=== PATIENT | male | born 1990 | race Caucasian/White ===

== ENCOUNTER 2018-05-29 22:37 | Inpatient (IN) | payer OTHER ==
[~2018-05-29] VITALS: Ht 188 cm; Wt 130.0 kg
[2018-05-29 23:40] VITALS: BP 146/97; PULSE 100; RESP 18
--- NOTE | 2018-05-30 00:05 | HP ---
Date/Time of Note Date/Time of Note DATE: 05/30/18 TIME: 00:05 Assessment/Plan VTE Prophylaxis SCD applied (from Nsg): Yes Pharmacological prophylaxis: NA/contraindicated Pharm contraindication: low risk/ambulating Lines/Catheters IV Catheter Type (from Nrsg): Saline Lock Assessment/Plan Hospital Course This is a 27-year male being admitted to the [facility] floor for: #1 acute pancreatitis: Possibly secondary to alcohol use versus triglycerides. Will check an ethanol level. Will check lipid panel. Keep the patient n.p.o. except meds. IV fluid hydration aggressively with normal saline. Pain control with Dilaudid. Check lipase level stat and in the a.m. trial of clear liquid diet in the a.m. #2 hyponatremia: Secondary likely to dehydration. IV hydration with normal saline. Monitor sodium levels. #3 diabetes mellitus type 2: hold patient's home oral medications, check hemoglobin A1c, insulin sliding scale, urine microalbumin #4 DVT GI prophylaxis: SCDs, no GI prophylaxis indicated Further treatment strategy will be implemented as per the clinical course HPI/ROS Admit Date/Time Admit Date/Time May 29, 2018 at 23:24 Hx of Present Illness Chief complaint: Abdominal pain This is a 27-year-old male with a history of diabetes and pancreatitis who presented to [facility] complaining of abdominal pain. The pain had started approximately 2 hours prior to his arrival at the ED. Pain was in the left upper abdomen and was sharp in nature and was constant. Denies any nausea vomiting or diarrhea. Did report a history of pancreatitis in the past. Patient reports that he last drank on Monday. He states he drinks approximately twice a week. Patient does report that he is hungry. Vitals at the transfer facility showed: Temperature 97.7/pulse 118/respirations 18/BP 141/85/pulse ox 96 on room air CBC showed white blood cell count 8.4/hemoglobin 16.8/hematocrit 49.8/platelet count 211 BMP shows sodium 132/potassium 4.6/chloride 93/carbon dioxide 24/creatinine 0.8 glucose 369 AST 27/ALT 43/alk phos 66/lipase 213 Urinalysis showed: Protein greater than 300 glucose greater than [address] scan of the abdomen and pelvis showed normal gallbladder. Fluid infiltration adjacent to the pancreatic tail and extending anterior to the left anterior perirenal fossa concerning for pancreatitis Allergies: NKDA Medications: See May Const: As per HPI Eyes : No pain discharge or redness or change in visual acuity ENT: No pain, sore throat, congestion, congestion, dysphagia or discharge Respiratory: No shortness of breath, cough, sputum, wheezing, or pleuritic pain Cardiovascular: No chest pain, palpitation, PND, or edema GI : As per HPI Genitourinary: No dysuria, hematuria, flank pain , discharge or CVA tenderness Musculoskeletal: No joint pain, back pain, neck pain, restricted range of motion in neck or joints Skin: No rash, bruising or hives Neuro: No headache, dizziness, syncope, seizure, focal weakness Endocrine: No polyuria, polydipsia, temperature intolerance Psych: No hallucination, depression, anxiety or suicidal ideation PMH/Family/Social Past Medical History Diabetes mellitus, recurrent pancreatitis Coded Allergies: No Known Allergy (Unverified , 05/30/18) Past Surgical History Pilonidal cyst removal Family History Significant Family History: no pertinent family hx Social History Alcohol Use: occasionally Smoking Status: Current every day smoker (Half pack per day) Drug Use: none Exam/Review of Systems Vital Signs Vitals Vital Signs Date Temp Pulse Resp B/P (MAP) Pulse Ox O2 O2 Flow FiO2 Time Delivery Rate 05/29/18 97.5 100 18 146/97 95 Room Air 23:40 (113) Exam Exam General: Patient currently lying in bed in mild distress from abdominal pain HEENT: Atraumatic, normocephalic. The pupils are equal, round and reactive. Extraocular motor are intact Neck: Supple with full range of motion. No rigidity or meningismus Chest: Nontender Lungs: Clear to auscultation bilaterally no crackles rales or wheezing Heart: Normal S1-S2, Regular rhythm and rate. No murmur, S3, or S4 Abdomen: Soft , tenderness palpation along the epigastric and left upper quadrant nondistended , bowel sounds are present. No guarding no rebound tenderness , No masses or organomegaly. No costovertebral temporal angle mass Extremities: Normal to inspection, no edema no cyanosis Neurologic: Normal mental status, speech normal, cranial nerves II through XII are intact, motor and sensory are intact, Additional Comments PROCEDURE: Chest. CLINICAL INDICATION: Wheezing. TECHNIQUE: Single frontal view of the chest was obtained. COMPARISON: None. FINDINGS: The cardiac silhouette is within normal limits. The aortic arch is unremarkable. There is no focal consolidation, vascular congestion or pleural effusion. There is no pneumothorax. IMPRESSION: No evidence for active cardiopulmonary disease. .Lj Yao MD, MD Date Time Electronically viewed and signed by .Lj Yao MD, on 05/30/2018 02:22 .T/ CC: ALEX LONG [id number] ALEX LONG May 30, 2018 00:05
[2018-05-30] MEDS ORDERED: BISACODYL (EC) 5 MG TAB PO PRN (00:30)
[2018-05-30] MEDS ORDERED: ACETAMINOPHEN 325 MG TAB PO PRN (00:30)
[2018-05-30] MEDS ORDERED: LORAZEPAM 2 MG INJ IV PRN (00:30)
[2018-05-30] MEDS ORDERED: ONDANSETRON 4 MG INJ IV PRN (00:30)
[2018-05-30] MEDS ORDERED: NACL 0.9% 3 ML SYG IV SCH (00:30)
[2018-05-30] MEDS ORDERED: DOCUSATE SODIUM 100 MG CAP PO PRN (00:30)
[2018-05-30] MEDS: SOD CHLORIDE 0.9% 1,000 ML IV SCH ×5 (00:47→23:36)
[2018-05-30] MEDS: HYDROmorphONE 0.5 MG/0.5 ML SYG IV PRN ×2 (00:53→07:45)
[2018-05-30] MEDS ORDERED: GLUCOSE GEL 15 GRAM TUBE PO PRN ×2 (01:00)
[2018-05-30] MEDS ORDERED: GLUCOSE GEL 15 GRAM TUBE BUCCAL PRN (01:00)
[2018-05-30] MEDS ORDERED: GLUCAGON 1 MG INJ IM PRN (01:00)
[2018-05-30] MEDS ORDERED: DEXTROSE 50% 50 ML SYRINGE IV PRN ×2 (01:00)
[2018-05-30] MEDS: INSULIN ASPART [NOVOLOG] 3 ML PEN SC SCH ×8 (02:00→21:00)
[2018-05-30 02:18] VITALS: Ht 188 cm; Wt 130.0 kg
[2018-05-30] MEDS ORDERED: LEVALBUTEROL (NEB) 1.25 MG/0.5 ML AMP HHN PRN (03:00)
[2018-05-30 08:07] VITALS: BP 129/60; PULSE 93; RESP 18
[2018-05-30] MEDS: THIAMINE 100 MG TAB PO SCH (09:13)
[2018-05-30] MEDS: MULTIVITAMINS THERAPEUTIC TAB PO SCH (09:13)
[2018-05-30] MEDS: FOLIC ACID 1 MG TAB PO SCH (09:14)
--- NOTE | 2018-05-30 10:29 | PN ---
Date/Time of Note Date/Time of Note DATE: 05/30/18 TIME: 10:28 Assessment/Plan VTE Prophylaxis Risk score (from Ns)>0 risk: 1 SCD applied (from Ns): No SCD contraindicated: other Pharmacological prophylaxis: NA/contraindicated Pharm contraindication: low risk/ambulating Lines/Catheters IV Catheter Type (from [facility]): Saline Lock Urinary Cath still in place: No Assessment/Plan Hospital Course SUBJECTIVE: Tolerating clear liquids. Denies any nausea. OBJECTIVE: Physical Exam General: Obese, 27 year-old male lying in bed in no apparent distress. HEENT: Normocephalic, atraumatic. Eyes: Anicteric sclerae, conjunctivae clear. ENT: Nasal septum midline, oral mucosa moist. Neck supple, no JVD noticed. Respiratory: Bilaterally clear breath sounds. No use of accessory muscles of respiration. No adventitious breath sounds. Cardiovascular: S1, S2 heard. regular rate and rhythm. Abdomen: Sof and nondistended. Epigastric tenderness. Bowel sounds positive in all 4 quadrants. Genitourinary: Deferred. Extremities: No cyanosis, no clubbing, no edema. Peripheral pulses palpable. Neurologic: Cranial nerves II through XII grossly intact. The patient is awake, alert, and oriented. Skin: Normal skin turgor. No skin rashes. Labs & Vitals per chart ASSESSMENT & PLAN 27 year old male with comorbidities including obesity, diabetes mellitus type 2, and recurrent pancreatitis. The patient went to the local emergency room because of abdominal pain. The patient was noted to have evidence of underlying pancreatitis. Therefore, the patient was transferred to [facility] for further evaluation because of insurance reasons. 1. Acute pancreatitis. -CT scan from the transferring facility showed fluid infiltration adjacent to the pancreatic tail with extension to the left anterior perirenal fossa concerning for pancreatitis -Trend pancreatic enzyme levels. -The patient was started on a trial of clear liquids. -Continue IV hydration. -Etiology unclear; possibly from alcoholism versus hypertriglyceridemia. 2. Diabetes mellitus type 2. -Hemoglobin A1c 12.4. -The patient was previously on insulin at home but stopped taking insulin and currently on metformin only. The patient did not want to take insulin at home. -Continue the patient on sliding scale insulin along with pre-meal insulin and basal insulin. -Obtain diabetes education consult. 3. Dyslipidemia. Low-cholesterol diet. 4. Obesity. -BMI more than 36 kg/m. -Weight reduction advised. -Diabetes education consult. 5. Fluids, electrolytes, and nutrition. -Clear liquids. -IV fluids. 6. DVT prophylaxis -Bilateral SCDs. 7. Plan. -Monitor pancreatic enzyme levels. -Advance diet as tolerated. -Obtain diabetes education consult. The patient was seen in collaboration with Dr. Butler. 3. Result Diagram: 05/30/18 0455 05/30/18 0455 Results 24hrs Laboratory Tests Test 05/30/18 00:26 05/30/18 00:57 05/30/18 01:54 05/30/18 04:55 White Blood Count 9.3 8.6 Red Blood Count 5.78 5.51 Hemoglobin 18.5 H 17.3 Hematocrit 49.6 48.3 Mean Corpuscular Volume 85.8 87.7 Mean Corpuscular 32.0 31.4 Hemoglobin Mean Corpuscular 37.3 H 35.8 Hemoglobin Concent Red Cell Distribution 12.4 12.3 Width Platelet Count 224 177 # Mean Platelet Volume 12.1 H 11.4 H Immature Granulocytes % 0.300 0.400 Neutrophils % 61.6 64.4 Lymphocytes % 28.8 25.2 Monocytes % 7.3 7.9 Eosinophils % 1.6 1.5 Basophils % 0.4 0.6 Nucleated Red Blood 0.0 0.0 Cells % Immature Granulocytes # 0.030 0.030 Neutrophils # 5.7 5.5 Lymphocytes # 2.7 2.2 Monocytes # 0.7 0.7 Eosinophils # 0.2 0.1 Basophils # 0.0 0.1 Nucleated Red Blood 0.0 0.0 Cells # Sodium Level 134 L 136 Potassium Level 4.5 4.0 Chloride Level 99 102 Carbon Dioxide Level 17 L 21 Anion Gap 18 H 13 Blood Urea Nitrogen 16 16 Creatinine 0.68 0.69 Est Glomerular Filtrat > 60 > 60 Rate mL/min Glucose Level 241 H 230 H Calcium Level 8.7 8.3 L Total Bilirubin 0.6 0.6 Direct Bilirubin 0.00 0.00 Indirect Bilirubin 0.6 0.6 Aspartate Amino 42 31 Transf (AST/SGOT) Alanine 31 34 Aminotransferase (ALT/SG PT) Alkaline Phosphatase 67 61 Total Protein 8.3 H 7.1 # Albumin 4.3 3.7 Globulin 4.00 H 3.40 H Albumin/Globulin Ratio 1.07 1.08 Lipase 229 190 Ethyl Alcohol Level < 10.0 H Bedside Glucose 253 H 243 H Hemoglobin A1c 12.4 H Magnesium Level 1.6 L Triglycerides Level Pending Cholesterol Level 209 H LDL Cholesterol, Pending Calculated HDL Cholesterol 18 L Cholesterol/HDL Ratio 11.6 Thyroid Stimulating 10.500 H Hormone (TSH) Test 05/30/18 05:14 05/30/18 09:10 Bedside Glucose 258 H 251 H Exam/Review of Systems Exam Vitals Vital Signs Date Temp Pulse Resp B/P (MAP) Pulse Ox O2 O2 Flow FiO2 Time Delivery Rate 05/30/18 98.0 93 18 129/60 91 Room Air 08:07 (83) Intake and Output 05/29/18 05/29/18 05/30/18 1515:00 23:00 07:00 IntakeIntake Total 900 ml BalanceBalance 900 ml Results Results 24hrs Laboratory Tests Test 05/30/18 00:26 05/30/18 00:57 05/30/18 01:54 05/30/18 04:55 White Blood Count 9.3 8.6 Red Blood Count 5.78 5.51 Hemoglobin 18.5 H 17.3 Hematocrit 49.6 48.3 Mean Corpuscular Volume 85.8 87.7 Mean Corpuscular 32.0 31.4 Hemoglobin Mean Corpuscular 37.3 H 35.8 Hemoglobin Concent Red Cell Distribution 12.4 12.3 Width Platelet Count 224 177 # Mean Platelet Volume 12.1 H 11.4 H Immature Granulocytes % 0.300 0.400 Neutrophils % 61.6 64.4 Lymphocytes % 28.8 25.2 Monocytes % 7.3 7.9 Eosinophils % 1.6 1.5 Basophils % 0.4 0.6 Nucleated Red Blood 0.0 0.0 Cells % Immature Granulocytes # 0.030 0.030 Neutrophils # 5.7 5.5 Lymphocytes # 2.7 2.2 Monocytes # 0.7 0.7 Eosinophils # 0.2 0.1 Basophils # 0.0 0.1 Nucleated Red Blood 0.0 0.0 Cells # Sodium Level 134 L 136 Potassium Level 4.5 4.0 Chloride Level 99 102 Carbon Dioxide Level 17 L 21 Anion Gap 18 H 13 Blood Urea Nitrogen 16 16 Creatinine 0.68 0.69 Est Glomerular Filtrat > 60 > 60 Rate mL/min Glucose Level 241 H 230 H Calcium Level 8.7 8.3 L Total Bilirubin 0.6 0.6 Direct Bilirubin 0.00 0.00 Indirect Bilirubin 0.6 0.6 Aspartate Amino 42 31 Transf (AST/SGOT) Alanine 31 34 Aminotransferase (ALT/SG PT) Alkaline Phosphatase 67 61 Total Protein 8.3 H 7.1 # Albumin 4.3 3.7 Globulin 4.00 H 3.40 H Albumin/Globulin Ratio 1.07 1.08 Lipase 229 190 Ethyl Alcohol Level < 10.0 H Bedside Glucose 253 H 243 H Hemoglobin A1c 12.4 H Magnesium Level 1.6 L Triglycerides Level Pending Cholesterol Level 209 H LDL Cholesterol, Pending Calculated HDL Cholesterol 18 L Cholesterol/HDL Ratio 11.6 Thyroid Stimulating 10.500 H Hormone (TSH) Test 05/30/18 05:14 05/30/18 09:10 Bedside Glucose 258 H 251 H Medications Medication Current Medications Sodium Chloride 1,000 ml @ 150 mls/hr Q6H40M IV Last administered on 05/30/18at 06:12; Admin Dose 150 MLS/HR; Start 05/30/18 at 00:01 IV Flush (NS 3 ml) 3 ml PER PROTOCOL IV ; Start 05/30/18 at 00:30 Ondansetron HCl (Zofran Inj) 4 mg Q6H PRN IV NAUSEA/VOMITING; Start 05/30/18 at 00:30 Acetaminophen (Tylenol Tab) 650 mg Q6H PRN PO .PAIN 1-3 OR TEMP; Start 05/30/18 at 00:30 Hydromorphone HCl (Dilaudid) 0.5 mg Q4H PRN IV .SEVERE PAIN 7-10 Last administered on 05/30/18at 07:45; Admin Dose 0.5 MG; Start 05/30/18 at 00:30 Docusate Sodium (Colace) 100 mg Q12H PRN PO .CONSTIPATION; Start 05/30/18 at 00:30 Bisacodyl (Dulcolax) 5 mg DAILY PRN PO .CONSTIPATION; Start 05/30/18 at 00:30 Lorazepam (Ativan) 1 mg Q4H PRN IV CONTROL WITHDRAWAL SYMPTOMS; Start 05/30/18 at 00:30 Multivitamins Therapeutic (Theragran) 1 tab DAILY PO Last administered on 05/30/18at 09:13; Admin Dose 1 TAB; Start 05/30/18 at 09:00 Thiamine HCl (Vitamin B1) 100 mg DAILY PO Last administered on 05/30/18at 09:13; Admin Dose 100 MG; Start 05/30/18 at 09:00 Folic Acid (Folic Acid) 1 mg DAILY PO Last administered on 05/30/18at 09:14; Admin Dose 1 MG; Start 05/30/18 at 09:00 Miscellaneous Information 1 ea NOTE XX ; Start 05/30/18 at 01:00 Glucose (Glutose) 15 gm Q15M PRN PO DECREASED GLUCOSE; Start 05/30/18 at 01:00 Glucose (Glutose) 22.5 gm Q15M PRN PO DECREASED GLUCOSE; Start 05/30/18 at 01:00 Dextrose (D50w Syringe) 25 ml Q15M PRN IV DECREASED GLUCOSE; Start 05/30/18 at 01:00 Dextrose (D50w Syringe) 50 ml Q15M PRN IV DECREASED GLUCOSE; Start 05/30/18 at 01:00 Glucagon (Glucagen) 1 mg Q15M PRN IM DECREASED GLUCOSE; Start 05/30/18 at 01:00 Glucose (Glutose) 15 gm Q15M PRN BUCCAL DECREASED GLUCOSE; Start 05/30/18 at 01:00 Levalbuterol (Xopenex Neb) 1.25 mg Q4H RESP THERAPY PRN HHN WHEEZING; Start 05/30/18 at 03:00 Insulin Aspart (Novolog Insulin Pen) NOVOLOG *MILD* ALGORI... AC MEALS AND BE DTIME SC ; Start 05/30/18 at 11:10; Status UNV Insulin Glargine (Lantus) 20 units DAILY@2000 SC ; Start 05/30/18 at 20:00; Status UNV Insulin Aspart (Novolog Insulin Pen) 7 unit WITH MEALS SC ; Start 05/30/18 at 11:40; Status UNV LUCILA ROGERS NP May 30, 2018 10:29
[2018-05-30] MEDS ORDERED: GLIP5TAB13 PO (11:21)
[2018-05-30] MEDS ORDERED: MTF1000T PO (11:21)
[2018-05-30] MEDS ORDERED: ALBU18HF INHALATION (11:21)
[2018-05-30] MEDS ORDERED: ATOR40TA68 PO (11:21)
[2018-05-30] MEDS ORDERED: MAGNESIUM SULFATE 2 GM/50 ML 50 ML IVPB ONE (12:30)
[2018-05-30 16:04] VITALS: BP 130/74; PULSE 90; RESP 18
[2018-05-30] MEDS ORDERED: INSULIN GLARGINE [LANTus] (100 UNITS/ML) SYG SC SCH (20:00)
[2018-05-30 20:02] VITALS: BP 137/72; PULSE 78; RESP 20
[2018-05-30] MEDS: GEMFIBROZIL 600 MG TAB PO SCH (20:50)
[2018-05-30] MEDS ORDERED: ATORVASTATIN 80 MG TAB PO SCH (21:00)
[2018-05-31 01:28] VITALS: BP 129/71; PULSE 77; RESP 18
[2018-05-31 08:14] VITALS: BP 138/79; PULSE 98; RESP 18
[2018-05-31] MEDS: INSULIN ASPART [NOVOLOG] 3 ML PEN SC SCH ×6 (09:02→20:23)
[2018-05-31] MEDS: MULTIVITAMINS THERAPEUTIC TAB PO SCH (09:05)
[2018-05-31] MEDS: FOLIC ACID 1 MG TAB PO SCH (09:05)
[2018-05-31] MEDS: THIAMINE 100 MG TAB PO SCH (09:06)
[2018-05-31] MEDS: GEMFIBROZIL 600 MG TAB PO SCH ×2 (09:08→20:13)
--- NOTE | 2018-05-31 14:41 | PN ---
Date/Time of Note Date/Time of Note DATE: 05/31/18 TIME: 14:29 Assessment/Plan VTE Prophylaxis Risk score (from Ns)>0 risk: 1 SCD applied (from [facility] [place] Yes Pharmacological prophylaxis: other Pharm contraindication: low risk/ambulating Lines/Catheters IV Catheter Type (from [facility]): Peripheral IV Urinary Cath still in place: No Assessment/Plan Assessment/Plan 1. Recurrent hypertriglyceridemia and alcohol induced pancreatitis, advance diet, strongly advised no ETOH 2. Dyslipidemia with hypertriglyceridemia, add lopid, treat hypothyroidism 3. Hypothyroidism, synthroid 4. DM, on metformin 5. Obesity, low weight 6. DVT prophylaxis, Bilateral SCDs. Result Diagram: 05/31/187 05/31/188 Results 24hrs Laboratory Tests Test 05/30/18 17:33 05/30/18 20:51 05/31/18 04:37 05/31/18 04:38 Bedside Glucose 179 180 White Blood Count 6.9 Red Blood Count 5.46 Hemoglobin 16.4 Hematocrit 47.8 Mean Corpuscular Volume 87.5 Mean Corpuscular 30.0 Hemoglobin Mean Corpuscular 34.3 Hemoglobin Concent Red Cell Distribution 12.2 Width Platelet Count 152 Mean Platelet Volume 11.8 H Immature Granulocytes % 0.300 Neutrophils % 56.5 Lymphocytes % 31.0 Monocytes % 8.7 Eosinophils % 2.9 Basophils % 0.6 Nucleated Red Blood 0.0 Cells % Immature Granulocytes # 0.020 Neutrophils # 3.9 Lymphocytes # 2.1 Monocytes # 0.6 Eosinophils # 0.2 Basophils # 0.0 Nucleated Red Blood 0.0 Cells # Sodium Level 138 Potassium Level 3.4 L Chloride Level 101 Carbon Dioxide Level 26 Anion Gap 11 Blood Urea Nitrogen 8 Creatinine 0.70 Est Glomerular Filtrat > 60 Rate mL/min Glucose Level 186 Calcium Level 8.8 Phosphorus Level 4.5 Magnesium Level 1.8 Total Bilirubin 1.5 H Direct Bilirubin 0.00 Indirect Bilirubin 1.5 H Aspartate Amino 22 Transf (AST/SGOT) Alanine 40 Aminotransferase (ALT/SG PT) Alkaline Phosphatase 58 Total Protein 6.9 Albumin 3.6 Globulin 3.30 H Albumin/Globulin Ratio 1.09 Amylase Level 60 Lipase 72 Test 05/31/18 08:58 05/31/18 13:06 Bedside Glucose 206 179 Subjective 24 Hr Interval Summary Free Text/Dictation no abdominal pain Exam/Review of Systems Exam Vitals Vital Signs Date Temp Pulse Resp B/P (MAP) Pulse Ox O2 O2 Flow FiO2 Time Delivery Rate 05/31/18 97.3 98 18 138/79 98 Room Air 08:14 (98) Intake and Output 05/30/18 05/30/18 05/31/18 1515:00 23:00 07:00 IntakeIntake Total 1870 ml 1800 ml 1800 ml BalanceBalance 1870 ml 1800 ml 1800 ml Constitutional: alert, oriented, well developed, obese Psych: no complaints, nl mood/affect Head: normocephalic, atraumatic Eyes: nl conjunctiva, EOMI, nl lids, PERRL ENMT: nl external ears & nose, nl lips & teeth, nl nasal mucosa & septum Neck: supple, non-tender Respiratory: clear to auscultation, normal air movement; No congested cough, No crackles/rales, No diminished breath sounds, No intercostal retraction, No labored breathing, No respirations, No tactile fremitus, No wheezing, No other Cardiovascular: regular rate and rhythm, nl pulses; No bruits, No diastolic murmur, No edema, No gallop, No irregular rhythm, No jugular venous distention (JVD), No murmurs/extra sounds, No rub, No systolic murmur, No S3, No S4, No other Gastrointestinal: soft, nl liver, spleen, non-tender Musculoskeletal: nl extremities to inspection Extremities: normal pulses; No calf tenderness, No cyanosis, No clubbing, No edema, No pitting pedal edema, No palpable cord, No tenderness, No other Neurological: CABINET IN[employer]ER II-XII intact, nl mental status, nl speech, nl strength Skin: nl turgor Results Results 24hrs Laboratory Tests Test 05/30/18 17:33 05/30/18 20:51 05/31/18 04:37 05/31/18 04:38 Bedside Glucose 179 180 White Blood Count 6.9 Red Blood Count 5.46 Hemoglobin 16.4 Hematocrit 47.8 Mean Corpuscular Volume 87.5 Mean Corpuscular 30.0 Hemoglobin Mean Corpuscular 34.3 Hemoglobin Concent Red Cell Distribution 12.2 Width Platelet Count 152 Mean Platelet Volume 11.8 H Immature Granulocytes % 0.300 Neutrophils % 56.5 Lymphocytes % 31.0 Monocytes % 8.7 Eosinophils % 2.9 Basophils % 0.6 Nucleated Red Blood 0.0 Cells % Immature Granulocytes # 0.020 Neutrophils # 3.9 Lymphocytes # 2.1 Monocytes # 0.6 Eosinophils # 0.2 Basophils # 0.0 Nucleated Red Blood 0.0 Cells # Sodium Level 138 Potassium Level 3.4 L Chloride Level 101 Carbon Dioxide Level 26 Anion Gap 11 Blood Urea Nitrogen 8 Creatinine 0.70 Est Glomerular Filtrat > 60 Rate mL/min Glucose Level 186 Calcium Level 8.8 Phosphorus Level 4.5 Magnesium Level 1.8 Total Bilirubin 1.5 H Direct Bilirubin 0.00 Indirect Bilirubin 1.5 H Aspartate Amino 22 Transf (AST/SGOT) Alanine 40 Aminotransferase (ALT/SG PT) Alkaline Phosphatase 58 Total Protein 6.9 Albumin 3.6 Globulin 3.30 H Albumin/Globulin Ratio 1.09 Amylase Level 60 Lipase 72 Test 05/31/18 08:58 05/31/18 13:06 Bedside Glucose 206 179 Medications Medication Current Medications Sodium Chloride 1,000 ml @ 150 mls/hr Q6H40M IV Last administered on 05/30/18at 23:36; Admin Dose 150 MLS/HR; Start 05/30/18 at 00:01 IV Flush (NS 3 ml) 3 ml PER PROTOCOL IV ; Start 05/30/18 at 00:30 Ondansetron HCl (Zofran Inj) 4 mg Q6H PRN IV NAUSEA/VOMITING; Start 05/30/18 at 00:30 Acetaminophen (Tylenol Tab) 650 mg Q6H PRN PO .PAIN 1-3 OR TEMP; Start 05/30/18 at 00:30 Hydromorphone HCl (Dilaudid) 0.5 mg Q4H PRN IV .SEVERE PAIN 7-10 Last administered on 05/30/18at 07:45; Admin Dose 0.5 MG; Start 05/30/18 at 00:30 Docusate Sodium (Colace) 100 mg Q12H PRN PO .CONSTIPATION; Start 05/30/18 at 00:30 Bisacodyl (Dulcolax) 5 mg DAILY PRN PO .CONSTIPATION; Start 05/30/18 at 00:30 Lorazepam (Ativan) 1 mg Q4H PRN IV CONTROL WITHDRAWAL SYMPTOMS; Start 05/30/18 at 00:30 Multivitamins Therapeutic (Theragran) 1 tab DAILY PO Last administered on 05/31/18 09:05; Admin Dose 1 TAB; Start 05/30/18 at 09:00 Thiamine HCl (Vitamin B1) 100 mg DAILY PO Last administered on 05/31/18 09:06; Admin Dose 100 MG; Start 05/30/18 at 09:00 Folic Acid (Folic Acid) 1 mg DAILY PO Last administered on 05/31/18 09:05; Admin Dose 1 MG; Start 05/30/18 at 09:00 Miscellaneous Information 1 ea NOTE XX ; Start 05/30/18 at 01:00 Glucose (Glutose) 15 gm Q15M PRN PO DECREASED GLUCOSE; Start 05/30/18 at 01:00 Glucose (Glutose) 22.5 gm Q15M PRN PO DECREASED GLUCOSE; Start 05/30/18 at 01:00 Dextrose (D50w Syringe) 25 ml Q15M PRN IV DECREASED GLUCOSE; Start 05/30/18 at 01:00 Dextrose (D50w Syringe) 50 ml Q15M PRN IV DECREASED GLUCOSE; Start 05/30/18 at 01:00 Glucagon (Glucagen) 1 mg Q15M PRN IM DECREASED GLUCOSE; Start 05/30/18 at 01:00 Glucose (Glutose) 15 gm Q15M PRN BUCCAL DECREASED GLUCOSE; Start 05/30/18 at 01:00 Levalbuterol (Xopenex Neb) 1.25 mg Q4H RESP THERAPY PRN HHN WHEEZING; Start 05/30/18 at 03:00 Insulin Aspart (Novolog Insulin Pen) NOVOLOG *MILD* ALGORI... AC MEALS AND BEDTIME SC Last administered on 05/31/18at 13:10; Admin Dose 1 UNIT; Start 05/30/18 at 11:10 Insulin Glargine (Lantus) 20 units DAILY@2000 SC Last administered on 05/30/18at 20:54; Admin Dose 20 UNITS; Start 05/30/18 at 20:00 Insulin Aspart (Novolog Insulin Pen) 7 unit WITH MEALS SC Last administered on 05/31/18 13:09; Admin Dose 7 UNIT; Start 05/30/18 at 11:40 Atorvastatin Calcium (Lipitor) 80 mg HS PO Last administered on 05/30/18at 20:50; Admin Dose 80 MG; Start 05/30/18 at 21:00 Gemfibrozil (Lopid) 600 mg BID PO Last administered on 05/31/18at 09:08; Admin Dose 600 MG; Start 05/30/18 at 21:00 MIKE FLANNERY MD May 31, 2018 14:40
[2018-05-31 15:27] VITALS: BP 133/86; PULSE 84; RESP 18
[2018-05-31] MEDS: SOD CHLORIDE 0.9% 1,000 ML IV SCH ×3 (15:50→22:28)
[2018-05-31] MEDS: glipiZIDE 10 MG TAB PO SCH (18:14)
[2018-05-31 20:00] VITALS: BP 134/74; PULSE 80; RESP 20
[2018-05-31] MEDS ORDERED: ATORVASTATIN 40 MG TAB PO SCH (21:00)
[2018-06-01] MEDS: SOD CHLORIDE 0.9% 1,000 ML IV SCH (05:18)
[2018-06-01] MEDS ORDERED: LEVOTHYROXINE 50 MCG TAB PO SCH (06:00)
[2018-06-01 07:45] VITALS: BP 132/97; PULSE 85; RESP 18
[2018-06-01] MEDS: INSULIN ASPART [NOVOLOG] 3 ML PEN SC SCH ×2 (08:58→12:40)
[2018-06-01] MEDS: THIAMINE 100 MG TAB PO SCH (09:03)
[2018-06-01] MEDS: GEMFIBROZIL 600 MG TAB PO SCH (09:03)
[2018-06-01] MEDS: glipiZIDE 10 MG TAB PO SCH (09:03)
[2018-06-01] MEDS: MULTIVITAMINS THERAPEUTIC TAB PO SCH (09:03)
[2018-06-01] MEDS ORDERED: LEVO50TA7 PO (15:05)
[2018-06-01] MEDS ORDERED: GEMF600T8 PO (15:05)
--- NOTE | 2018-06-01 15:19 | DS ---
Date/Time of Note Date/Time of Note DATE: 06/01/18 TIME: 15:11 Discharge Summary Admission/Discharge Info Admit Date/Time May 29, 2018 at 23:24 Discharge Date/Time Discharge Diagnosis 1. Recurrent hypertriglyceridemia and alcohol induced pancreatitis, advance t, strongly advised no ETOH, improved 2. Dyslipidemia with hypertriglyceridemia, add lopid, follow up with PCP 3. Hypothyroidism, synthroid 4. DM, on metformin and glipizide, declines insulin, follow up with PCP 5. Obesity, low weight Patient Condition: Stable Hospital Course This is a 27-year-old male with a history of diabetes and pancreatitis who presented to [facility] complaining of abdominal pain. The pain had started approximately 2 hours prior to his arrival at the ED. Pain was in the left upper abdomen and was sharp in nature and was constant. Denies any nausea vomiting or diarrhea. Did report a history of pancreatitis in the past. Patient reports that he last drank on Monday. He states he drinks approximately twice a week. Vitals at the transfer facility showed: Temperature 97.7/pulse 118/respirations 18/BP 141/85/pulse ox 96 on room air CBC showed white blood cell count 8.4/hemoglobin 16.8/hematocrit 49.8/platelet count 211 BMP shows sodium 132/potassium 4.6/chloride 93/carbon dioxide 24/creatinine 0.8 glucose 369 AST 27/ALT 43/alk phos 66/lipase 213 Urinalysis showed: Protein greater than 300 glucose greater than [address] scan of the abdomen and pelvis showed normal gallbladder. Fluid infiltration adjacent to the pancreatic tail and extending anterior to the left anterior perirenal fossa concerning for pancreatitis The pancreatitis is considered hypertriglyceridemia related, ETOH may contributes to it. His TG level was >1575. Lopid is started, TG is 1022 on 06/01/2018. Patient is advised to low fat, low chol diet, avoid alcohol. He will follow up with PCP for further treatment of dyslipidemia. Side effects of medications are repeatedly discussed with him yesterday and today. Patient had uncontrolled DM. He is on orals with metformin and glipizide. HbA1c is 12.4. Besides diet control, he is tstrongly recommends insulin treatment but he declines. He will follow up with PCP for medication adjustment. TSH is 10.5, he is started on synthroid. Home Meds Active Scripts Levothyroxine Sodium* (Levothyroxine Sodium*) 50 Mcg Tablet, 50 MCG PO DAILY@06 for 30 Days, TAB Prov:MIKE FLANNERY MD 06/01/18 Gemfibrozil* (Gemfibrozil*) 600 Mg Tablet, 600 MG PO BID for 30 Days, TAB Prov:MIKE FLANNERY MD 06/01/18 Reported Medications Albuterol Sulfate* (Ventolin HFA*) 18 Gm Hfa.aer.ad, 2 PUFF INHALATION Q4H, #1 INHALER 05/30/18 Glipizide* (Glipizide*) 5 Mg Tablet, 5 MG PO BID, TAB 05/30/18 Metformin* (Glucophage*) 1,000 Mg Tablet, 1000 MG PO BID, #60 TAB 05/30/18 Atorvastatin* (Atorvastatin*) 40 Mg Tablet, 40 MG PO QHS, #30 TAB 05/30/18 Follow-up Plan PCP in one week Primary Care Provider Care Physician No Primary Pending Labs Laboratory Tests Test 05/31/18 18:07 05/31/18 20:17 06/01/18 04:57 06/01/18 08:28 Bedside 150 179 218 Glucose mg/dL (70-220) mg/dL (70-220) mg/dL (70-220) Sodium Level 140 mmol/L (135-14 4) Potassium 3.7 Level mmol/L (3.5-5. 1) Chloride Level 103 mmol/L (97-110 ) Carbon Dioxide 21 Level mmol/L (21-31) Anion Gap 16 (5-13) Blood Urea 12 Nitrogen mg/dl (7-20) Creatinine 0.63 mg/dl (0.61-1. 24) Est Glomerular > 60 Filtrat mL/min (>60) Rate mL/min Glucose Level 245 mg/dl (70-220) Calcium Level 9.3 mg/dl (8.4-10. 2) Total 0.6 Bilirubin mg/dl (0.2-1.3 ) Direct 0.00 Bilirubin mg/dl (0.00-0. 20) Indirect 0.6 Bilirubin mg/dl (0-1.1) Aspartate Amino 21 Transf (AST/SGO IU/L (15-46) T) Alanine 29 Aminotransferas IU/L (13-69) e (ALT/SGPT) Alkaline 59 Phosphatase IU/L (42-121) Total Protein 7.2 g/dl (6.1-8.1) Albumin 3.9 g/dl (3.3-4.9) Globulin 3.30 g/dl (1.3-3.2) Albumin/Globuli 1.18 n Ratio Triglycerides 1022 Level mg/dl (0-149) Test 06/01/18 12:08 Bedside 252 Glucose mg/dL (70-220) MIKE FLANNERY MD Jun 01, 2018 15:18
[2018-06-01] MEDS ORDERED: metFORMIN 500 MG TAB GTB SCH (17:55)
== END 2018-06-01 15:40 | disposition home or self-care (01) | DRG 439 ==
LOC: MS1 23:24
PROVIDERS: ADMIT Family Medicine; ATTEND Internal Medicine
DX: K85.20 Alcohol induced acute pancreatitis without necrosis or infection (principal); E87.1 Hypo-osmolality and hyponatremia; E11.65 Type 2 diabetes mellitus with hyperglycemia; E78.5 Hyperlipidemia, unspecified; E78.1 Pure hyperglyceridemia; E66.9 Obesity, unspecified; F17.200 Nicotine dependence, unspecified, uncomplicated; Z68.36 Body mass index [BMI] 36.0-36.9, adult; Z79.84 Long term (current) use of oral hypoglycemic drugs
CPT/HCPCS: 71045; 80053; 80061; 80307; 82150; 82962; 83036; 83690; 83735; 84100; 84439; 84443; 84478; 85025; J1170; J1815; J3475; J7030